=== PATIENT | female | born 1990 | race Caucasian/White ===

== ENCOUNTER 2023-10-15 20:48 | Emergency (ER) | payer OTHER ==
[~2023-10-15] VITALS: Ht 157.5 cm; Wt 99.8 kg
[2023-10-15 20:51] VITALS: BP_SYST 138; PULSE 100; RESP 20; TEMP 97.8; O2SAT 97
[2023-10-15] MEDS ORDERED: KETOROLAC TROMETHAMINE 15 MG VIAL IM ONE (21:30)
== END 2023-10-15 22:09 | disposition left against medical advice (07) ==
LOC: SED 20:48
DX: M75.22 Bicipital tendinitis, left shoulder (principal); Z79.899 Other long term (current) drug therapy
CPT/HCPCS: 93005; 99283